=== PATIENT | male | born 1940 | race Caucasian/White ===

== ENCOUNTER 2018-12-18 08:21 | Emergency (ER) | payer MEDICARE ==
[~2018-12-18] VITALS: Ht 167.6 cm; Wt 59.0 kg
[2018-12-18 08:33] VITALS: BP 154/65
[2018-12-18] MEDS ORDERED: CEPH-264 PO (08:50)
--- NOTE | 2018-12-18 08:50 | PHYS DOC ---
Past Medical History Past Medical History: COPD, GERD, High Cholesterol, Hypertension Past Surgical History: No Surgical History Smoking: Cigarettes, Less than 1pk/day Alcohol Use: Occasionally Drug Use: None Adult General Chief Complaint Chief Complaint: LACERATION/AVULSION [facility] HPI Patient is a 78 year old male who presents after he tripped and had a mechanical fall around 9 AM yesterday morning. When he fell he hit his head on a shelf. He has a laceration to the left temporal portion of the head. The laceration is approximately 1.5 cm in length. He also has bruising under his right eye. Denies any pain at this time. States his tetanus shot is up-to-date. Washed the wound out at home and states he has not tried any medications. Review of Systems Review of Systems Constitutional: Denies fever or chills [] Eyes: Denies change in visual acuity, redness, or eye pain. Has bruising under the right eye. HENT: Denies nasal congestion or sore throat Respiratory: Denies cough or shortness of breath [] Cardiovascular: No additional information not addressed in HPI [] GI: Denies abdominal pain, nausea, vomiting, bloody stools or diarrhea [] : Denies dysuria or hematuria [] Musculoskeletal: Denies back pain or joint pain [] Integument: Denies rash or skin lesions, reports laceration to the head. Neurologic: Denies headache, focal weakness or sensory changes [] Endocrine: Denies polyuria or polydipsia [] Complete systems were reviewed and found to be within normal limits, except as documented in this note. Allergies Allergies Allergies Coded Allergies Type Severity Reaction Last Updated Verified No Known Drug Allergies 12/18/18 No Physical Exam Physical Exam Constitutional: Well developed, well nourished, no acute distress, non-toxic appearance. [] HENT: Normocephalic, traumatic right eye, bilateral external ears normal, oropharynx moist, no oral exudates, nose normal. [] Eyes: PERRLA, EOMI, conjunctiva normal, no discharge. [] Neck: Normal range of motion, no tenderness, supple, no stridor. [] Cardiovascular:Heart rate regular rhythm, no murmur [] Lungs & Thorax: Bilateral breath sounds clear to auscultation [] Abdomen: Bowel sounds normal, soft, no tenderness, no masses, no pulsatile masses. [] Skin: Warm, dry, no erythema, no rash. [] Back: No tenderness, no CVA tenderness. [] Extremities: No tenderness, no cyanosis, no clubbing, ROM intact, no edema. [] Neurologic: Alert and oriented X 3, normal motor function, normal sensory function, no focal deficits noted. [] Psychologic: Affect normal, judgement normal, mood normal. [] Current Patient Data Vital Signs Vital Signs Date Time Temp Pulse Resp B/P (MAP) Pulse Ox O2 Delivery O2 Flow Rate FiO2 12/18/18 08:33 98.6 52 17 154/65 (94) 98 Room Air 98.6 EKG EKG [] Radiology/Procedures Radiology/Procedures []PATIENT: DEVIN MEJIA BACCOUNT: [id number]#: [id number] : 1940 LOCATION: ER AGE: 78 SEX: M EXAM STATUS: REG ER ORD. PHYSICIAN: ZOILA HOLGUIN APRN REASON: fall PROCEDURE: CT HEAD AND MAXILLOFACIAL WO PQRS Compliance statement: One or more of the following individualized dose reduction techniques were utilized for this examination: 1. Automated exposure control. 2. Adjustment of the mA and/or kV according to patient size. 3. Use of iterative reconstruction technique. Indication:Fall. TECHNIQUE: CT head without IV contrast COMPARISON: None FINDINGS: No pathologic extra-axial or intra-axial fluid collection. The ventricles and basal cisterns are within normal limits. No acute intracranial bleed. Small scalp hematoma overlying the posterior lateral left high convexity. No acute calvarial fractures. Atherosclerotic plaque seen in the bilateral cavernous segments of the ICA. IMPRESSION: 1. No acute intracranial bleed or calvarial fracture. 2. Small left posterior lateral high convexity scalp hematoma with laceration. Indication:Fall TECHNIQUE: CT of the maxillofacial bones without IV contrast multiplanar reformats. COMPARISON: None FINDINGS: Nondisplaced right nasal bone fracture, age indeterminate. The bilateral zygoma within normal limits. Probably old healed bilateral zygomatic arch fractures. The bilateral external artery canal and inner ear ear cavities are within normal limits. Bilateral pterygoid plates are within normal limits. The globes, extraocular muscles and intraorbital fat are within normal limits. There is circumferential mucoperiosteal thickening seen in the right maxillary sinus. Rest of the paranasal sinuses and mastoid air cells are clear. The bilateral temporomandibular joints and mandible are within normal limits. Visualized upper cervical spine is within normal limits. Mild to moderate degenerative changes at atlantoaxial joint. Facial soft tissue within normal limits. IMPRESSION: Nondisplaced right nasal bone fracture, age indeterminate. Chronic right maxillary sinus disease. Electronically signed by: Marcello Beck DO (12/18/2018 9:05 AM) [facility] DICTATED and SIGNED BY: MARCELLO BECK DO DATE: 12/18/18904 Course & Med Decision Making Course & Med Decision Making Pertinent Labs and Imaging studies reviewed. (See chart for details) Patient has a laceration to the head after a mechanical fall. Patient wound has been open for 24 hours. Will not suture due to risk of infection. Will place patient on Keflex to go home for prophylactic treatment. Patient has bruising under right eye will get CT Head/Face. Imaging is negative with exception of age indeterminate nasal bone fracture. Patient denies pain to nasal bone on palpation. Is non-displaced. Dragon Disclaimer Dragon Disclaimer This electronic medical record was generated, in whole or in part, using a voice recognition dictation system. Departure Departure Impression: Primary Impression: Fall Disposition: 01 HOME, SELF-CARE Condition: STABLE Patient Instructions: Fall Prevention and Home Safety Additional Instructions: Thank you for visiting [facility]. We appreciate you trusting us with your care. If any additional problems come up don't hesitate to return to visit us. Please follow up with your primary care provider so they can plan additional care if needed and know about the problem that you had. If symptoms worsen come back to the Emergency Department. Any concerning symptoms that start such as chest pain, shortness of Air, weakness or numbness on one side of the body, running high fevers or any other concerning symptoms return to the ER. Please fill your medications at any pharmacy and follow the prescription instructions. Come back to ER if you notice any signs of infections such as redness, increased pain, or pus coming out of wound. Keep wound clean. Scripts Cephalexin (KEFLEX) 500 Mg Capsule 1 CAP PO BID for 7 Days, #14 CAP Prov: ZOILA HOLGUIN APRN 12/18/18 Problem Qualifiers Primary Impression: Fall Encounter type: initial encounter Qualified Codes: W19.XXXA - Unspecified fall, initial encounter ZOILA HOLGUIN APRN Dec 18, 2018 08:50
--- NOTE | 2018-12-18 09:08 | RAD ---
PQRS Compliance statement: One or more of the following individualized dose reduction techniques were utilized for this examination: 1. Automated exposure control. 2. Adjustment of the mA and/or kV according to patient size. 3. Use of iterative reconstruction technique. Indication:Fall. TECHNIQUE: CT head without IV contrast COMPARISON: None FINDINGS: No pathologic extra-axial or intra-axial fluid collection. The ventricles and basal cisterns are within normal limits. No acute intracranial bleed. Small scalp hematoma overlying the posterior lateral left high convexity. No acute calvarial fractures. Atherosclerotic plaque seen in the bilateral cavernous segments of the ICA. IMPRESSION: 1. No acute intracranial bleed or calvarial fracture. 2. Small left posterior lateral high convexity scalp hematoma with laceration. Indication:Fall TECHNIQUE: CT of the maxillofacial bones without IV contrast multiplanar reformats. COMPARISON: None FINDINGS: Nondisplaced right nasal bone fracture, age indeterminate. The bilateral zygoma within normal limits. Probably old healed bilateral zygomatic arch fractures. The bilateral external artery canal and inner ear ear cavities are within normal limits. Bilateral pterygoid plates are within normal limits. The globes, extraocular muscles and intraorbital fat are within normal limits. There is circumferential mucoperiosteal thickening seen in the right maxillary sinus. Rest of the paranasal sinuses and mastoid air cells are clear. The bilateral temporomandibular joints and mandible are within normal limits. Visualized upper cervical spine is within normal limits. Mild to moderate degenerative changes at atlantoaxial joint. Facial soft tissue within normal limits. IMPRESSION: Nondisplaced right nasal bone fracture, age indeterminate. Chronic right maxillary sinus disease. Electronically signed by: Marcello Pete DO (12/18/2018 9:05 AM) [facility]
== END 2018-12-18 09:29 | disposition home or self-care (01) ==
LOC: ER 08:21
DX: S02.2XXA Fracture of nasal bones, initial encounter for closed fracture (principal); S01.01XA Laceration without foreign body of scalp, initial encounter; J32.0 Chronic maxillary sinusitis; I10 Essential (primary) hypertension; E78.00 Pure hypercholesterolemia, unspecified; K21.9 Gastro-esophageal reflux disease without esophagitis; J44.9 Chronic obstructive pulmonary disease, unspecified; F17.210 Nicotine dependence, cigarettes, uncomplicated; W01.198A Fall on same level from slipping, tripping and stumbling with subsequent striking against other object, initial encounter; Y93.89 Activity, other specified; Y92.89 Other specified places as the place of occurrence of the external cause; Y99.8 Other external cause status
CPT/HCPCS: 70450; 70486; 99284

== ENCOUNTER 2020-07-19 08:21 | Outpatient (CLI) | payer MEDICARE ==
[~2020-07-19] VITALS: Ht 167.6 cm; Wt 61.2 kg
[2020-07-19] VITALS (12 sets, daily range): BP systolic 143–185; BP diastolic 60–94
[~2020-07-19 08:21] MED LIST: CEPH-264 PO
[2020-07-19] MEDS ORDERED: RAMI5CAP50 PO (08:49)
[2020-07-19] MEDS ORDERED: SPIR25TA5 PO (08:49)
[2020-07-19] MEDS ORDERED: CARV25TA2 PO (08:49)
[2020-07-19] MEDS ORDERED: CLOP75TA PO (08:49)
[2020-07-19] MEDS ORDERED: ASPI-630 PO (08:49)
[2020-07-19] MEDS ORDERED: MULT-245 PO (08:49)
[2020-07-19] MEDS ORDERED: AMLO-186 PO (08:49)
[2020-07-19 08:59] LABS: BASO # 0.1 x10^3/uL (0.0-0.2); BASO % 1 % (0-3); EOS # 0.5 x10^3/uL (0.0-0.7); EOS % 5 % (0-3); HEMATOCRIT 43.5 % (39.0-53.0); HEMOGLOBIN 14.5 g/dL (13.0-17.5); LYMPH # 2.2 x10^3/uL (1.0-4.8); LYMPH % 21 % (24-48); MEAN CORPUSCULAR HEMOGLOBIN 31 pg (25-35); MEAN CORPUSCULAR HGB CONC 33 g/dL (31-37); MEAN CORPUSCULAR VOLUME 94 fL (79-100); MONO # 0.7 x10^3/uL (0.0-1.1); MONO % 7 % (0-9); NEUT % 66 % (31-73); PLATELET COUNT 246 x10^3/uL (140-400); RED BLOOD COUNT 4.62 x10^6/uL (4.30-5.70); RED CELL DISTRIBUTION WIDTH 14.6 % (11.5-14.5); WHITE BLOOD COUNT 10.5 x10^3/uL (4.0-11.0)
[2020-07-19 09:01] LABS: CREATININE 1.2 mg/dL (0.7-1.3); GFR 58.7; POTASSIUM 4.7 mmol/L (3.5-5.1)
[2020-07-19 09:07] LABS: ALBUMIN 3.3 g/dL (3.4-5.0); ALBUMIN/GLOBULIN RATIO 0.9 (1.0-1.7); TOTAL BILIRUBIN 0.5 mg/dL (0.2-1.0); TOTAL PROTEIN 7.1 g/dL (6.4-8.2)
[2020-07-19] MEDS ORDERED: LIDOCAINE WITH 8.4% SOD BICARB 3 ML DISP.SYRIN. ONE (10:18)
[2020-07-19] MEDS ORDERED: fentaNYL PF VIAL 100 MCG/2 ML VIAL ONE (10:33)
[2020-07-19] MEDS ORDERED: MIDAZOLAM HCL/PF 2 MG/2 ML VIAL. ONE (10:33)
[2020-07-19] MEDS ORDERED: LIDOCAINE WITH 8.4% SOD BICARB 3 ML DISP.SYRIN. IJ ONE (10:45)
[2020-07-19] MEDS ORDERED: MIDAZOLAM HCL/PF 2 MG/2 ML VIAL. IV ONE (10:45)
[2020-07-19] MEDS ORDERED: fentaNYL PF VIAL 100 MCG/2 ML VIAL IV ONE (10:45)
--- NOTE | 2020-07-19 15:28 | RAD ---
CT-guided biopsy, right upper lobe pulmonary nodule 07/19/2020 1:24 PM Clinical Indication: Right upper lobe pulmonary nodule concerning for malignancy Discussion: The procedure was explained in its entirety to the patient or the patients designated appliance service representative by a member of the treatment team, including a discussion of the risks, benefits and commonly accepted alternatives to the procedure, as well as the expected consequences of no therapy whatsoever. Discussion of the risks included, but was not limited to, those that are most frequent and those that are rare but possibly severe or life-threatening, as well as the possibility of unforeseen complications. All elements of maximal sterile barrier technique including the use of a cap, mask, sterile gown, sterile gloves, large sterile sheet, appropriate hand hygiene, and 2% chlorhexidine for cutaneous antisepsis (or acceptable alternative antiseptic per current guidelines) were followed for this procedure. CT imaging was obtained demonstrating right upper nodule, unchanged from prior exam. The overlying anterior chest was prepped and draped as described. 1% lidocaine was administered for local anesthesia. Under intermittent CT guidance a 17-gauge needle was advanced into the nodule. Core biopsies were obtained. Minimal pneumothorax versus tenting of the pleura was seen with the biopsy needle in place. Minimal air was aspirated as needle was removed. No further pneumothorax is identified. Sterile dressings were applied. The procedure was performed under conscious sedation including continuous cardiopulmonary monitoring via dedicated sedation nurse. [id number] sedation time: 26 minutes Impression: CT-guided biopsy, right upper lobe nodule PQRS Compliance Statement: One or more of the following individualized dose reduction techniques were utilized for this examination: 1. Automated exposure control 2. Adjustment of the mA and/or kV according to patient size 3. Use of iterative reconstruction technique
--- NOTE | 2020-07-19 16:39 | RAD ---
XR CHEST 1V 07/19/2020 12:53 PM INDICATION: Lung biopsy COMPARISON: None available TECHNIQUE: Portable frontal view of the chest is provided. FINDINGS: The cardiomediastinal silhouette is within normal limits. Nodular opacity in the right upper lobe keny sures approximately 15 mm without significant perilesional hemorrhage. COPD changes with flattening of the diaphragms. There are no significant pleural effusions. There is no pulmonary vascular congestion. No pneumothorax. No suspicious osseous abnormality. IMPRESSION: Stable right upper lobe nodular opacity without significant perilesional hemorrhage. No pneumothorax. COPD changes are present. Electronically signed by: Jane Anthony MD (07/19/2020 4:36 PM) [id number]
== END 2020-07-19 13:23 | disposition home or self-care (01) ==
LOC: INTRAD 08:21
PROVIDERS: ATTEND Internal Medicine Pulmonary Disease
DX: R91.8 Other nonspecific abnormal finding of lung field (principal); J44.9 Chronic obstructive pulmonary disease, unspecified; I10 Essential (primary) hypertension; K21.9 Gastro-esophageal reflux disease without esophagitis; F17.210 Nicotine dependence, cigarettes, uncomplicated; Z86.73 Personal history of transient ischemic attack (TIA), and cerebral infarction without residual deficits; Z79.899 Other long term (current) drug therapy; Z98.890 Other specified postprocedural states; Z79.82 Long term (current) use of aspirin; Z88.8 Allergy status to other drugs, medicaments and biological substances
CPT/HCPCS: 32408; 36415; 71045; 80053; 85025; 85610; 99152; 99153; J2250; J3010; J3490

== ENCOUNTER → 2020-08-03 | Outpatient (CLI) | payer MEDICARE ==
[2020-07-19 12:57] VITALS: BP 150/60
[~2020-08-03] MED LIST changes: +AMLO-186 PO; +ASPI-630 PO; +CARV25TA2 PO; +CLOP75TA PO; +GADOTERATE 5 MMOL/10ML VIAL. IVP ONE; +MULT-245 PO; +RAMI5CAP50 PO; +SPIR25TA5 PO
--- NOTE | 2020-08-03 10:31 | RAD ---
EXAMINATION: Magnetic resonance imaging (MRI) of the brain and brainstem without and with contrast 08/03/2020 9:15 AM HISTORY: History of lung adenocarcinoma, staging TECHNIQUE: Multiplanar multi-weighted MRI of the brain and brainstem was performed without and with i ntravenous contrast using the general brain protocol. Contrast information: 10 mL Gadolinium based contrast COMPARISON: None available. FINDINGS: The scalp and calvarium are normal. The superior sagittal sinus demonstrates normal venous flow. The corpus callosum is normal in shape and signal intensity. The posterior fossa is unremarkable. The p ituitary and sella are normal. The brainstem and craniocervical junction are unremarkable. There are T2/FLAIR signal hyperintense foci in the periventricular and subcortical white matter most suggestiv e of mild chronic small vessel ischemic changes. Diffusion weighted images reveal no hyperintensities to suggest acute cerebral infarction. The suscep tibility weighted sequences reveal no evidence of acute or chronic hemorrhage. The ventricles are nor mal in size and position without evidence of hydrocephalus. There are no areas of abnormal contrast enhancement. The paranasal sinuses are normal. The visualized portions of the mastoids are unremarkable. The orbi ts appear normal with exception of bilateral lens replacement. Normal flow voids are demonstrated in the carotid arteries and basilar artery. There is focal ectasia of the left cavernous segment diversity intern al carotid artery flow void measuring 10 mm in diameter. IMPRESSION: 1. No evidence for intracranial metastatic disease. No evidence for acute or subacute ischemia. 2. There are T2/FLAIR signal hyperintense foci in the periventricular and subcortical white matter mo st suggestive of mild chronic small vessel ischemic changes. 3. There is ectasia of the cavernous segment left internal carotid artery measuring up to 10 mm in di ameter. Further characterization with CTA of the head may be of benefit. Electronically signed by: Jane Anthony MD (08/03/2020 10:29 AM) [facility]
--- NOTE | 2020-08-03 14:10 | RAD ---
EXAM: NM PET/CT SKULL BASE TO MID THIGH EXAM DATE: 08/03/2020 INDICATION: Lung cancer initial staging. RADIOPHARMACEUTICAL: 14.4 mCi of F-18 Fluorodeoxyglucose (FDG) I.V. via the right forearm. TECHNIQUE: Patient weight: 125 pounds. Following at least four-hour fasting, the patient's blood gluc ose was 98 mg/dl. Approximately 1 hour 30 minutes after administration of FDG, overlapping emission scanning was performed from the orbital meatal line through the pelvis. A low-dose CT was performed for attenuation correction purposes and anatomic localization. Fused images of PET and CT were review ed. Any standardized uptake values (SUV) reported are maximum values within a volume region of inter est, expressed in gm/ml. COMPARISON: Chest CT with IV contrast of 07/06/2020, CT guided lung biopsy of 07/19/2020 FINDINGS: PET: The biopsy-proven malignant nodule in the peripheral right upper lobe (image 122 of series 3) shows u ptake to a max SUV of 1.24, compared with background mediastinal activity of 2.02. The slightly smaller and more caudal right upper lobe pulmonary nodule (image 133 series 3) shows FDG uptake to max SUV of 1.23. The remaining pulmonary nodules identifiable in the lungs show no discernible FDG uptake. Background FDG uptake in the mediastinum shows a max SUV of 2.02. Background FDG uptake in the liver shows a max SUV of 2.44. CT: Head and neck shows calcifications in the carotid arteries with no cervical adenopathy or mass. Mucos al thickening in the right maxillary antrum is incidentally noted. Chest shows multiple oval groundglass nodules in the right lung as described previously. Largest wilian ures 1.6 cm and is tachycardic of previous. The trachea shows a mucous plug at the vanessa asymmetric to the left. The heart is normal in size but shows multivessel coronary calcifications. Normal calibe r thoracic aorta. Scattered aortic calcifications. There is a small hiatal hernia. No pneumothorax or pleural effusion. Chest wall shows two radiopaque metallic densities in the right axilla Abdomen shows multiple lesions in the kidneys bilaterally that has circumscribed and varying density, some hyperdense, others hypodense. These are compatible with cortical cysts with varying degrees of calcification and hemorrhage. No acute bowel pathology. The abdominal aorta shows mild ectasia distal ly to 2.4 cm. Pelvis shows mildly enlarged prostate measuring 5.1 cm in diameter. No mass or adenopathy. IMPRESSION: There are at least 2 groundglass nodules in the right upper lobe, one of which is a biopsy-proven pavithra g malignancy. Both show low level FDG uptake below background. Additional smaller lung nodules are al so noted. These all could represent small lung malignancies. There is no evidence of elizabeth or distant metastatic disease by FDG uptake. Electronically signed by: Gabriel Murphy MD (08/03/2020 2:08 PM) [id number]
== END ==
LOC: PETSC 07:19
PROVIDERS: ATTEND Radiology Radiation Oncology
DX: C34.91 Malignant neoplasm of unspecified part of right bronchus or lung (principal); R91.8 Other nonspecific abnormal finding of lung field; N40.0 Benign prostatic hyperplasia without lower urinary tract symptoms
CPT/HCPCS: 70553; 78815; A9552; A9575

== ENCOUNTER → 2020-08-16 | Outpatient (CLI) | payer MEDICARE ==
[2020-07-19 12:57] VITALS: BP 150/60
[~2020-08-16] MED LIST changes: -GADOTERATE 5 MMOL/10ML VIAL. IVP ONE
[2020-08-16 08:38] LABS: BASO # 0.2 x10^3/uL (0.0-0.2); BASO % 2 % (0-3); EOS # 0.6 x10^3/uL (0.0-0.7); EOS % 7 % (0-3); HEMATOCRIT 40.5 % (39.0-53.0); HEMOGLOBIN 13.3 g/dL (13.0-17.5); LYMPH # 2.2 x10^3/uL (1.0-4.8); LYMPH % 25 % (24-48); MEAN CORPUSCULAR HEMOGLOBIN 31 pg (25-35); MEAN CORPUSCULAR HGB CONC 33 g/dL (31-37); MEAN CORPUSCULAR VOLUME 95 fL (79-100); MONO # 0.7 x10^3/uL (0.0-1.1); MONO % 9 % (0-9); NEUT # 4.9 x10^3/uL (1.8-7.7); NEUT % 57 % (31-73); PLATELET COUNT 252 x10^3/uL (140-400); RED BLOOD COUNT 4.26 x10^6/uL (4.30-5.70); RED CELL DISTRIBUTION WIDTH 14.4 % (11.5-14.5); WHITE BLOOD COUNT 8.6 x10^3/uL (4.0-11.0)
[2020-08-16 08:49] LABS: CALCIUM 8.8 mg/dL (8.5-10.1); CREATININE 1.3 mg/dL (0.7-1.3); GFR 53.5; POTASSIUM 5.2 mmol/L (3.5-5.1)
[2020-08-16 08:54] LABS: ALBUMIN 3.3 g/dL (3.4-5.0); TOTAL BILIRUBIN 0.5 mg/dL (0.2-1.0); TOTAL PROTEIN 6.6 g/dL (6.4-8.2)
== END ==
LOC: ONCLAB 08:18
PROVIDERS: ATTEND Internal Medicine Hematology & Oncology
DX: C34.91 Malignant neoplasm of unspecified part of right bronchus or lung (principal)
CPT/HCPCS: 36415; 80053; 85025

== ENCOUNTER → 2021-01-01 | Outpatient (CLI) | payer MEDICARE ==
[2020-07-19 12:57] VITALS: BP 150/60
[~2021-01-01] MED LIST changes: +CONTRAST GIVEN. MC PRN; +IOHEXOL 300 MG/ML 100ML VIAL. IV ONE
[2021-01-01 08:14] LABS: CREATININE 1.2 mg/dL (0.7-1.3); GFR 58.6
--- NOTE | 2021-01-01 09:37 | RAD ---
PQRS Compliance Statement: One or more of the following individualized dose reduction techniques were utilized for this examinat ion: 1. Automated exposure control 2. Adjustment of the mA and/or kV according to patient size 3. Use of iterative reconstruction technique CT THORAX W 01/01/2021 7:59 AM Indication: Lung adenocarcinoma COMPARISON: PET/CT 08/03/2020. TECHNIQUE: Multiple axial CT images of the chest were obtained after the intravenous administration o f 60 cc Omnipaque 300. Coronal and sagittal reformats are provided. FINDINGS: Stable mixed solid and groundglass nodule in the right upper lobe measuring 1.6 x 1.0 cm (series 2, i mage 19). Subpleural nodule along the lateral right upper lobe measures 1.0 cm (series 2, image 23). There are adjacent fiducial markers within the right axilla. Findings are stable from prior PET/CT. S ubpleural reticular interstitial changes are identified left lung base suggestive of subsegmental ate lectasis or scarring. No new or enlarging solid noncalcified pulmonary nodule. Paraseptal pulmonary e mphysema identified at the lung apices, right greater than left. No pleural effusions, pulmonary vasc ular congestion or pneumothorax. Scarring identified in the right lower lobe. Stable subpleural wedge -shaped groundglass opacity in the lateral right upper lobe (series 2, image 24). There is gynecomast ia. Thyroid gland is normal in appearance. Heart size within normal limits. No pericardial effusion. Sinus of Valsalva measures up to 4.4 cm, ectatic. Ascending thoracic aorta measures 3.6 cm. There is a small hiatal hernia. Simple cyst identified in the superior pole of the kidneys measuring up to 1.8 cm in the superior pole the right kidney. No suspicious osseous abnormality. Schmorl's nodes identif ied within the lower thoracic spine with minimal height loss, chronic. IMPRESSION: 1. Stable appearance of 2 mixed predominantly groundglass nodules in the right upper lobe, previously mildly PET avid. 2. No new or enlarging thoracic lymphadenopathy. 3. Ectasia of the sinus of Valsalva measuring 4.4 cm. Electronically signed by: Jane Anthony MD (01/01/2021 9:34 AM) [id number]
== END ==
LOC: CT 07:45
PROVIDERS: ATTEND Radiology Radiation Oncology
DX: C34.91 Malignant neoplasm of unspecified part of right bronchus or lung (principal); R91.8 Other nonspecific abnormal finding of lung field; J98.4 Other disorders of lung; J43.9 Emphysema, unspecified; N62 Hypertrophy of breast; N28.1 Cyst of kidney, acquired; K44.9 Diaphragmatic hernia without obstruction or gangrene
CPT/HCPCS: 36415; 71260; 82565; 84520; Q9967

== ENCOUNTER → 2021-01-14 | Outpatient (CLI) | payer MEDICARE ==
[2020-07-19 12:57] VITALS: BP 150/60
[~2021-01-14] MED LIST changes: -CONTRAST GIVEN. MC PRN; -IOHEXOL 300 MG/ML 100ML VIAL. IV ONE
--- NOTE | 2021-01-14 10:50 | KCIC ---
Examination: MRI of the right hip without contrast HISTORY: History of right hip pain COMPARISON: None TECHNIQUE: Multiplanar, multisequence MR imaging of the right hip without contrast FINDINGS: The right femoral head is within the acetabulum. There is nondisplaced fracture of the right femoral neck basicervical region with moderate surrounding increased T2, low T1 signal likely edema. Moderate size osteophyte formation identified in the medial aspect of the right femoral head. Moderate hip tristan int effusion. The attachment of the hamstring tendon to the ischial tuberosity, attachment of the glu teal tendons to the greater trochanter, attachment of the iliopsoas tendon to the lesser trochanter a nd the attachment of the rectus femoris tendon to the anterior inferior iliac spine grossly appears i ntact. IMPRESSION: 1. Nondisplaced fracture of the right femoral neck basicervical region with moderate surrounding anna ma. 2. Moderate degenerative changes right hip joint. FOR INTERNAL CODING PURPOSES Critical result: Findings discussed with ordering physician's nurse at 01/14/2021 10:47 AM. RESULT CODE: (C) Electronically signed by: Louis Currie MD (01/14/2021 10:48 AM) [id number]
== END ==
LOC: KCIC MRI 09:01
PROVIDERS: ATTEND Nurse Practitioner Family
DX: S72.001A Fracture of unspecified part of neck of right femur, initial encounter for closed fracture (principal); M16.11 Unilateral primary osteoarthritis, right hip; M25.751 Osteophyte, right hip; X58.XXXA Exposure to other specified factors, initial encounter; Y93.89 Activity, other specified; Y92.89 Other specified places as the place of occurrence of the external cause; Y99.8 Other external cause status
CPT/HCPCS: 73721

== ENCOUNTER → 2021-07-09 | Outpatient (CLI) | payer MEDICARE ==
[2021-01-20 14:41] VITALS: BP 136/52
[~2021-07-09] MED LIST changes: +ACET500T68 PO; +CONTRAST GIVEN. MC PRN; +CRESTOR5 MG PO; +DONE10TA7 PO; +IOHEXOL 300 MG/ML 100ML VIAL. IV ONE; +MEMA5TAB42 PO; +RIVA10TA PO; +TRAM50TA PO
--- NOTE | 2021-07-09 09:21 | RAD ---
CT THORAX W History: Lung adenocarcinoma Technique: CT of the chest was performed with intravenous contrast. Coronal and sagittal reconstructi ons were performed. Exposure: One or more of the following individualized dose reduction techniques were utilized for thi s examination: 1. Automated exposure control 2. Adjustment of the mA and/or kV according to patient size 3. Use of iterative reconstruction technique. Comparison: CT chest from 01/01/2021 FINDINGS: LUNGS/PLEURA: Stable mixed solid and groundglass nodule in the right upper lobe measuring 1.5 x 1.0 c m (20/2) stable subpleural nodule along the lateral right upper lobe measuring 1 cm (23/2). Stable díaz bpleural wedge-shaped groundglass opacity in the lateral right upper lobe (23/2). Similar 5 mm ground glass nodule abutting the right major fissure (24/2). New 0.9 cm noncalcified nodule in the superior segment of the right lower lobe (34/2). New 6 mm noncalcified nodule in the lingula (41/2). Small rig ht pleural effusion. Scattered areas of scarring and/or atelectasis in bilateral lower lobes, right m iddle lobe and also in the lingula. Central airways clear. Similar paraseptal pulmonary emphysema toya ntified in the lung apices, right greater than left. MEDIASTINUM: No pathologic mediastinal or hilar adenopathy. The descending thoracic aorta measures up to 3.6 cm. Similar ectatic dilation of the sinus of Valsalva measuring up to 4.4 cm. Similar next at herosclerotic disease of the thoracic aorta and major branching vessels with no evidence of aneurysma l dilation or hemodynamically significant stenosis. The heart is normal in size. No pericardial effus ion. Moderate calcified coronary atherosclerosis. The visualized thyroid gland is normal. Redemonstra tion of small to moderate hiatal hernia. Mild distal esophageal wall thickening may relate to reflux dysphagia process. AXILLA/SOFT TISSUE: No supraclavicular or axillary adenopathy. Redemonstrated fiducial markers in the right axilla Regional soft tissues are within normal limits. Benign bilateral gynecomastia. OSSEOUS: No suspicious osseous abnormalities. Schmorl's nodes identified within the lower thoracic sp ine with minimal height loss. ABDOMEN: Essentially unchanged simple cyst identified in the superior poles of bilateral kidneys, gre ater on the right. Adrenal glands are normal. IMPRESSION: 1. New solid 0.9 cm nodule in the superior segment of the right lower lobe suggestive of malignancy p rogression. Indeterminate subcentimeter pulmonary nodule in the lingula. These currently resides belo w the size threshold for PET/CT. May consider short interval follow-up in 3-6 months. 2. Stable appearance of 2 mixed predominantly groundglass nodules in the right upper lobe. 3. New trace right pleural effusion. No new or enlarging thoracic lymphadenopathy. 4. Similar ectasia of the sinus of Valsalva measuring 4.4 cm. PRQS compliance statement - One or more of the following individualized dose reduction techniques wer e utilized for this study: 1. Automated exposure control 2. Adjustment of the mA and/or kV according to patient size 3. Use of iterative reconstruction technique Electronically signed by: Brent العراقي DO (07/09/2021 9:19 AM) [facility]
== END ==
LOC: CT 08:30
PROVIDERS: ATTEND Radiology Radiation Oncology
DX: C34.91 Malignant neoplasm of unspecified part of right bronchus or lung (principal); R91.8 Other nonspecific abnormal finding of lung field; I77.810 Thoracic aortic ectasia; I25.10 Atherosclerotic heart disease of native coronary artery without angina pectoris; I70.0 Atherosclerosis of aorta; N62 Hypertrophy of breast; N28.1 Cyst of kidney, acquired
CPT/HCPCS: 71260; Q9967